=== PATIENT | male | born 1965 | race Caucasian/White ===

== ENCOUNTER 2017-02-11 19:21 | Emergency (ER) | payer OTHER ==
[~2017-02-11] VITALS: Ht 188 cm; Wt 136.1 kg
[~2017-02-11 19:21] MED LIST: ARIP2TAB9 PO; DULO20CA PO; Fluocinonide TP; TOPI25TA8 PO; WARF3TAB29 PO
[2017-02-11 20:26] LABS: BASOPHILS # (AUTO) 0.5 /CMM (0.0-0.2); BASOPHILS % (AUTO) 4.6 % (0.0-2.0); DIFF TOTAL % 100 %; EOSINOPHILS # (AUTO) 0.4 /CMM (0.0-0.7); EOSINOPHILS % (AUTO) 3.7 % (0.0-6.0); HEMATOCRIT 49 % (39-51); HEMOGLOBIN 16.2 g/dL (13.5-17.5); LYMPHOCYTES % (AUTO) 19.9 % (20.0-44.0); MEAN CORPUSCULAR HEMOGLOBIN 30 PG (26.0-33.0); MEAN CORPUSCULAR HGB CONC 33 g/dl (31.0-36.0); MEAN CORPUSCULAR VOLUME 90 fL (80-96); MONOCYTES # (AUTO) 0.6 /CMM (0.1-1.30); MONOCYTES % (AUTO) 5.8 % (2.0-12.0); NEUTROPHILS # (AUTO) 6.5 /CMM (1.8-8.9); PLATELET COUNT (AUTO) 209 /CMM (150-450); RED BLOOD CELL COUNT(AUTO) 5.44 MIL/uL (4.5-6.0)
[2017-02-11 20:28] LABS: CREATININE 0.9 mg/dL (0.6-1.3)
[2017-02-11 20:33] LABS: INR 1.04 (0.87-1.13); PROTHROMBIN TIME 10.9 SECS (9.5-12.7)
[2017-02-11 20:37] LABS: CALCIUM, SERUM 8.9 mg/dL (8.5-10.1)
[2017-02-11 21:23] VITALS: BP 126/61
== END 2017-02-11 21:24 | disposition home or self-care (01) ==
LOC: ER 19:21
DX: H61.22 Impacted cerumen, left ear (principal); L30.9 Dermatitis, unspecified; R79.1 Abnormal coagulation profile; I50.9 Heart failure, unspecified; J44.9 Chronic obstructive pulmonary disease, unspecified; F17.200 Nicotine dependence, unspecified, uncomplicated; F41.9 Anxiety disorder, unspecified; F32.9 Major depressive disorder, single episode, unspecified; Z86.718 Personal history of other venous thrombosis and embolism; Z86.711 Personal history of pulmonary embolism; Z79.01 Long term (current) use of anticoagulants
CPT/HCPCS: 36415; 69209; 80048; 85025; 85730; 99284; A4606; A6402; Z7610

== ENCOUNTER 2019-06-05 17:23 | Emergency (ER) | payer OTHER ==
[~2019-06-05] VITALS: Ht 188 cm; Wt 99.8 kg
[~2019-06-05 17:23] MED LIST changes: +ARIP2TAB3 PO; -ARIP2TAB9 PO; +TOPI25TA PO; -TOPI25TA8 PO
[2019-06-05 17:51] VITALS: BP 118/76
--- NOTE | 2019-06-05 18:02 | NUR ---
pt rec;d to er c/o rt knee pain hx dvt not taking eliquis for [address] pain8/10 given po s tiolerating well oriented x3 . AWAITING EVALUATION BY ER PROVIDER.
[2019-06-05 18:11] LABS: BASOPHILS # (AUTO) 0.1 /CMM (0.0-0.2); BASOPHILS % (AUTO) 0.9 % (0.0-2.0); EOSINOPHILS % (AUTO) 4.7 % (0.0-6.0); HEMATOCRIT 45 % (39-51); HEMOGLOBIN 14.9 g/dL (13.5-17.5); LYMPHOCYTES # (AUTO) 1.5 /CMM (0.8-4.8); LYMPHOCYTES % (AUTO) 20.6 % (20.0-44.0); MEAN CORPUSCULAR HGB CONC 33 g/dl (31.0-36.0); MEAN CORPUSCULAR VOLUME 94 fL (80-96); MONOCYTES # (AUTO) 0.7 /CMM (0.1-1.30); MONOCYTES % (AUTO) 9.7 % (2.0-12.0); NEUTROPHILS # (AUTO) 4.8 /CMM (1.8-8.9); NEUTROPHILS % (AUTO) 64.1 % (43.0-81.0); PLATELET COUNT (AUTO) 216 /CMM (150-450); RED BLOOD CELL COUNT(AUTO) 4.74 MIL/uL (4.5-6.0); WHITE BLOOD COUNT (AUTO) 7.4 K/uL (4.3-11.0)
[2019-06-05 18:20] LABS: CREATININE 0.8 mg/dL (0.6-1.3); POTASSIUM 3.7 mmol/L (3.5-5.1)
--- NOTE | 2019-06-05 18:20 | NUR ---
iv started left ac 20g labs drawn sent to lab
--- NOTE | 2019-06-05 18:21 | NUR ---
called for duplex lower legs
[2019-06-05 18:26] LABS: ALBUMIN 3.4 g/dL (3.4-5.0); BILIRUBIN,DIRECT 0.3 mg/dL (0.0-0.2); BILIRUBIN,TOTAL 1.3 mg/dL (0.2-1.0); TOTAL PROTEIN, SERUM 6.7 g/dL (6.4-8.2)
--- NOTE | 2019-06-05 19:02 | NUR ---
keith was neg notified
== END 2019-06-05 20:48 | disposition home or self-care (01) ==
LOC: ER 17:28
DX: M79.661 Pain in right lower leg (principal); J44.9 Chronic obstructive pulmonary disease, unspecified; F32.9 Major depressive disorder, single episode, unspecified; F41.9 Anxiety disorder, unspecified; I50.9 Heart failure, unspecified; F17.200 Nicotine dependence, unspecified, uncomplicated; Z98.890 Other specified postprocedural states; Z59.0 Homelessness; Z79.01 Long term (current) use of anticoagulants; Z79.899 Other long term (current) drug therapy
CPT/HCPCS: 36415; 80048-TC; 80076-TC; 85025-TC; 85730-TC; 93970-TC

== ENCOUNTER 2019-06-12 13:56 | Emergency (ER) | payer OTHER ==
[~2019-06-12] VITALS: Ht 190.5 cm; Wt 97.5 kg
--- NOTE | 2019-06-12 14:10 | NUR ---
[facility], CHEST PAIN X 2 HOURS, NON RADIATING. PATIENT A/OX4, ATTACHED TO THE MONITOR, CHANGED IN TO GOWN, NO RESP DISTRESS NOTED.
[2019-06-12 14:28] LABS: BASOPHILS # (AUTO) 0.1 /CMM (0.0-0.2); BASOPHILS % (AUTO) 1.1 % (0.0-2.0); EOSINOPHILS % (AUTO) 6.7 % (0.0-6.0); HEMATOCRIT 47 % (39-51); HEMOGLOBIN 15.6 g/dL (13.5-17.5); LYMPHOCYTES # (AUTO) 1.1 /CMM (0.8-4.8); LYMPHOCYTES % (AUTO) 17.3 % (20.0-44.0); MEAN CORPUSCULAR HGB CONC 33 g/dl (31.0-36.0); MEAN CORPUSCULAR VOLUME 95 fL (80-96); MONOCYTES # (AUTO) 0.7 /CMM (0.1-1.30); MONOCYTES % (AUTO) 10.7 % (2.0-12.0); NEUTROPHILS # (AUTO) 3.9 /CMM (1.8-8.9); NEUTROPHILS % (AUTO) 64.2 % (43.0-81.0); PLATELET COUNT (AUTO) 208 /CMM (150-450); RED BLOOD CELL COUNT(AUTO) 4.95 MIL/uL (4.5-6.0); WHITE BLOOD COUNT (AUTO) 6.1 K/uL (4.3-11.0)
[2019-06-12] MEDS ORDERED: ALBUTEROL FS 2.5 MG/3 ML VIAL.NEB CONTNEB ONE (14:30)
[2019-06-12] MEDS ORDERED: IV NS 0.9% 1,000 ML BAG IV ONE (14:30)
[2019-06-12] MEDS ORDERED: APIXABAN 5 MG TABLET PO SCH (14:30)
[2019-06-12] MEDS ORDERED: IPRATROPIUM NEB FS 0.5 MG/2.5 ML AMPUL.NEB NEB ONE (14:30)
[2019-06-12 14:35] LABS: CARBON DIOXIDE 34 mmol/L (21-32); CHLORIDE 108 mmol/L (98-107); CREATININE 0.9 mg/dL (0.6-1.3); GLUCOSE 99 mg/dL (74-106); POTASSIUM 3.5 mmol/L (3.5-5.1); SODIUM SERUM 145 mmol/L (136-145); UREA NITROGEN, BLOOD 13 mg/dL (7-18)
[2019-06-12] MEDS ORDERED: ALBUTEROL FS 2.5 MG/3 ML VIAL.NEB ONE (14:35)
[2019-06-12] MEDS ORDERED: IPRATROPIUM NEB FS 0.5 MG/2.5 ML AMPUL.NEB ONE (14:36)
[2019-06-12] MEDS ORDERED: IV NS 0.9% 250 ML IV ONE (15:04)
[2019-06-12] MEDS ORDERED: IOHEXOL-300 100 ML VIAL IV ONE (15:04)
[2019-06-12] MEDS ORDERED: CT SWABBABLE VALVE TRANS SET 1 EA INFUS.SET MC ONE (15:04)
--- NOTE | 2019-06-12 15:08 | NUR ---
PATIENT TAKEN TO CT.
--- NOTE | 2019-06-12 15:54 | NUR ---
PATIENT DENIES PAIN/DISCOMFORT AT THIS TIME
--- NOTE | 2019-06-12 17:00 | NUR ---
PATIENT A/OX3, DENIES CHEST PAIN, NO SOB NOTED. HOMELESS WAIVER FORM SIGNED, PATIENT GIVEN FOOD, AND SKILLED NURSING RESOURCES. REFUSED TAP CARD. PATIENT IN NO DISTRESS.
--- NOTE | 2019-06-12 17:05 | NUR ---
Patient discharged in stable condition. Written and verbal after care instructions given. Patient verbalizes understanding of instruction.
[2019-06-12 17:50] VITALS: BP 118/66
== END 2019-06-12 17:51 | disposition home or self-care (01) ==
LOC: ER 13:58
DX: R07.89 Other chest pain (principal); I50.9 Heart failure, unspecified; J44.9 Chronic obstructive pulmonary disease, unspecified; F32.9 Major depressive disorder, single episode, unspecified; F41.9 Anxiety disorder, unspecified; F17.200 Nicotine dependence, unspecified, uncomplicated; Z98.890 Other specified postprocedural states; Z86.711 Personal history of pulmonary embolism; Z59.0 Homelessness; Z79.899 Other long term (current) drug therapy; Z79.01 Long term (current) use of anticoagulants
CPT/HCPCS: 36415; 71045; 71260; 80048; 84484; 85025; 93005; 94640 ×2; 99284; J7030; J7050; Q9967

== ENCOUNTER 2019-06-29 19:38 | Emergency (ER) | payer OTHER ==
[~2019-06-29] VITALS: Ht 188 cm; Wt 99.8 kg
[2019-06-29 20:42] VITALS: BP 138/69
--- NOTE | 2019-06-29 21:39 | NUR ---
PT REFUSING TO SIGN HOMELESS DISCHARGE PAPERWORK. PACKET OF AVAILABLE RESOURCES GIVEN TO PATIENT BEFORE DISCHARGE. PACKET WAS THROWN AWAY IN THE TRASHCAN BY PATIENT BEFORE LEAVING. PT AMBULATORY. VSS. -SOB NOTED.
== END 2019-06-29 21:41 | disposition home or self-care (01) ==
LOC: ER 19:42
DX: R05 Cough (principal); I50.9 Heart failure, unspecified; J44.9 Chronic obstructive pulmonary disease, unspecified; F32.9 Major depressive disorder, single episode, unspecified; F41.9 Anxiety disorder, unspecified; F17.200 Nicotine dependence, unspecified, uncomplicated; Z98.890 Other specified postprocedural states; Z76.0 Encounter for issue of repeat prescription; Z59.0 Homelessness; Z79.01 Long term (current) use of anticoagulants; Z86.711 Personal history of pulmonary embolism
CPT/HCPCS: 71045-TC

== ENCOUNTER 2019-07-09 06:25 | Emergency (ER) | payer OTHER ==
[~2019-07-09] VITALS: Ht 188 cm; Wt 100.2 kg
[2019-07-09 06:31] VITALS: BP 124/74
== END 2019-07-09 06:59 | disposition home or self-care (01) ==
LOC: ER 06:30
DX: L03.116 Cellulitis of left lower limb (principal); I50.9 Heart failure, unspecified; J44.9 Chronic obstructive pulmonary disease, unspecified; F32.9 Major depressive disorder, single episode, unspecified; F41.9 Anxiety disorder, unspecified; F17.200 Nicotine dependence, unspecified, uncomplicated; Z86.711 Personal history of pulmonary embolism; Z87.01 Personal history of pneumonia (recurrent); Z98.890 Other specified postprocedural states; Z59.0 Homelessness; Z79.899 Other long term (current) drug therapy; Z79.01 Long term (current) use of anticoagulants

== ENCOUNTER 2019-07-12 10:13 | Emergency (ER) | payer OTHER ==
[~2019-07-12] VITALS: Ht 188 cm; Wt 99.8 kg
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
--- NOTE | 2019-07-12 10:29 | NUR ---
DR VALERA AT BEDSIDE
--- NOTE | 2019-07-12 11:38 | NUR ---
Patient signed homeless waiver discharge. Patient given written and verbal discharge instructions. Patient verbalizes understanding of instructions. Patient is ambulatory with steady gait. Refuses offer of [facility] placement. Patient given list of available shelters in surrounding area. Nameband removed. Discharged in proper clothing.
[2019-07-12 11:40] VITALS: BP 124/76
== END 2019-07-12 11:42 | disposition home or self-care (01) ==
LOC: ER 10:15
DX: S60.222A Contusion of left hand, initial encounter (principal); S90.32XA Contusion of left foot, initial encounter; I50.9 Heart failure, unspecified; J44.9 Chronic obstructive pulmonary disease, unspecified; F32.9 Major depressive disorder, single episode, unspecified; F17.200 Nicotine dependence, unspecified, uncomplicated; F41.9 Anxiety disorder, unspecified; Z86.711 Personal history of pulmonary embolism; Z98.890 Other specified postprocedural states; Z59.0 Homelessness; V09.9XXA Pedestrian injured in unspecified transport accident, initial encounter; Y93.89 Activity, other specified; Y92.89 Other specified places as the place of occurrence of the external cause; Y99.8 Other external cause status
CPT/HCPCS: 73130-TC; 73630-TC

== ENCOUNTER 2020-08-09 23:19 | Emergency (ER) | payer OTHER ==
[~2020-08-09] VITALS: Ht 190.5 cm; Wt 95.3 kg
--- NOTE | 2020-08-09 23:54 | NUR ---
DR PERALTA AT BED SIDE
--- NOTE | 2020-08-10 | NUR ---
PT CAME TO THE ER C/O GENERALIZED ABD PAIN +N/V/D X 2 DAYS. PT ALSO ENDORSES BEING DEPRESSED. +SI -HI. PT AAOX4, VSS, RESPIRATIONS EVEN AND UNLABORED ON RA W / NAD NOTED. PT CONNECTED TO THE MONITOR AND POX
[2020-08-10] MEDS ORDERED: ONDANSETRON HCL/PF 4 MG/2 ML VIAL ONE (00:10)
--- NOTE | 2020-08-10 00:15 | NUR ---
BLOOD COLLECTED AND SENT TO LAB
[2020-08-10] MEDS: ONDANSETRON HCL/PF - ER 4 MG/2 ML VIAL IV ONE (00:18)
[2020-08-10] MEDS: IV NS 0.9% 1,000 ML BAG IV ONE (00:18)
--- NOTE | 2020-08-10 00:20 | NUR ---
PT MEDICATED ORDERED
[2020-08-10 00:31] LABS: BASOPHILS # (AUTO) 0.1 /CMM (0.0-0.2); BASOPHILS % (AUTO) 1.2 % (0.0-2.0); EOSINOPHILS % (AUTO) 6.1 % (0.0-6.0); HEMATOCRIT 46 % (39-51); HEMOGLOBIN 15.1 g/dL (13.5-17.5); LYMPHOCYTES # (AUTO) 1.9 /CMM (0.8-4.8); LYMPHOCYTES % (AUTO) 28.6 % (20.0-44.0); MEAN CORPUSCULAR HGB CONC 33 g/dl (31.0-36.0); MEAN CORPUSCULAR VOLUME 95 fL (80-96); MONOCYTES # (AUTO) 0.7 /CMM (0.1-1.30); MONOCYTES % (AUTO) 10.9 % (2.0-12.0); NEUTROPHILS # (AUTO) 3.6 /CMM (1.8-8.9); NEUTROPHILS % (AUTO) 53.2 % (43.0-81.0); PLATELET COUNT (AUTO) 184 /CMM (150-450); RED BLOOD CELL COUNT(AUTO) 4.84 MIL/uL (4.5-6.0); WHITE BLOOD COUNT (AUTO) 6.8 K/uL (4.3-11.0)
[2020-08-10 00:49] LABS: ALANINE AMINOTRANSFERASE 17 U/L (12-78); ALBUMIN 3.5 g/dL (3.4-5.0); ALCOHOL, BLOOD < 3 mg/dL (0-0); ALKALINE PHOSPHATASE 91 U/L (46-116); ASPARTATE AMINOTRANSFERASE 19 U/L (15-37); BILIRUBIN,DIRECT 0.2 mg/dL (0.0-0.2); BILIRUBIN,TOTAL 0.7 mg/dL (0.2-1.0); CALCIUM, SERUM 8.9 mg/dL (8.5-10.1); CARBON DIOXIDE 30 mmol/L (21-32); CHLORIDE 103 mmol/L (98-107); CREATININE 0.9 mg/dL (0.6-1.3); GLUCOSE 106 mg/dL (74-106); LIPASE 130 U/L (73-393); POTASSIUM 3.8 mmol/L (3.5-5.1); SODIUM SERUM 140 mmol/L (136-145); TOTAL PROTEIN, SERUM 6.8 g/dL (6.4-8.2); UREA NITROGEN, BLOOD 16 mg/dL (7-18)
[2020-08-10 01:12] LABS: ACETAMINOPHEN < 2 ug/ml (10-30)
[2020-08-10] MEDS ORDERED: IOHEXOL-300 100 ML VIAL IV ONE (01:18)
[2020-08-10] MEDS ORDERED: IV NS 0.9% 250 ML IV ONE (01:18)
[2020-08-10] MEDS ORDERED: CT SWABBABLE VALVE TRANS SET 1 EA INFUS.SET MC ONE (01:18)
--- NOTE | 2020-08-10 01:19 | NUR ---
PT TAKEN TO RADIOLOGY FOR CT
--- NOTE | 2020-08-10 01:37 | NUR ---
PT BACK FROM RADIOLOGY
--- NOTE | 2020-08-10 01:59 | NUR ---
URINE COLLECTED AND SENT TO LAB
[2020-08-10 02:14] LABS: APPEARANCE,URINE CLEAR (CLEAR); BILIRUBIN,URINE NEGATIVE (NEGATIVE); BLOOD, URINE NEGATIVE Ery/uL (NEGATIVE); COLOR,URINE YELLOW (YELLOW); KETONES,URINE NEGATIVE (NEGATIVE); LEUKOCYTE ESTERASE ,URINE NEGATIVE (NEGATIVE); NITRITE, URINE NEGATIVE (NEGATIVE); PROTEIN,URINE NEGATIVE (NEGATIVE); UGLUCOSE NEGATIVE (NEGATIVE)
[2020-08-10 02:33] LABS: RBC,URINE 0-2 /HPF (0-2); WBC,URINE 0-2 /HPF (0-3)
[2020-08-10 02:34] LABS: BACTERIA,URINE None seen /HPF (None Seen); SQUAMOUS EPITHELIAL CELL,UR Few /HPF (None Seen)
--- NOTE | 2020-08-10 03:28 | NUR ---
CLINICAL FAXED TO [facility] FOR VOLUNTARY ADMISSION.
--- NOTE | 2020-08-10 04:31 | NUR ---
PT RESTING COMFORTABLY IN BED. VSS. NO ACUTE DISTRESS NOTED. PT CONNECTED TO THE MONITOR AND POX. CALL LIGHT WITHIN REACH. SITTER AT BEDSIDE FOR SAFETY.
--- NOTE | 2020-08-10 05:26 | NUR ---
NO BEDS AT [facility] PER INTAKE.
--- NOTE | 2020-08-10 07:30 | NUR ---
REPORT GIVEN TO ARTIS TYLER FOR [facility]
--- NOTE | 2020-08-10 08:20 | NUR ---
madina carrollw called for eval/placement
--- NOTE | 2020-08-10 08:58 | NUR ---
PER MIGUELANGEL COKER, PATIENT WILL BE GOING TO [facility]. AWAITING TRANSFER INFO FROM [facility].
--- NOTE | 2020-08-10 09:52 | NUR ---
Mineral Industry Teacher Consult requested by ARTIS Bhatti. Patient is a 55 year-old male. Per MD note . Presenting initially with complaints of nausea, vomiting and diarrhea. Patient was alert and oriented x4. Patient confirmed demographics on face sheet including date of . Patient currently reports to be homeless for approximately 2 years now. Patient reports a total income of $1600 as he receives from his mothers antony. Patient reports drinking alcohol every now and then reports beer approximately 2-3 beers a week when he does drink. Patient reports smoking marijuana to ease anxiety. Patient reports the use of Meth started one month ago and the last time used was 4-5 days ago. Patient reports smoking cigarettes, reports trying to quit, currently smoking half a pack a day. This SW affirmed the patients want to stop smoking. Patient reports burn out. Reports a mental health diagnosis of depression and anxiety. Reports using marijuana to help with the anxiety but according to the patient does not work anymore. Patient stopped medications 6-7 months ago. Patient reports going to [facility] and most recent [facility] but stopped 3 months ago. Patient denies auditory and visual hallucinations. Patient reports no current suicidal ideation but has thought about it in the past. Per patient Im too chicken, I care about myself too much. Patient denies homicidal ideation. Patient would like voluntary treatment at a psychiatric facility. This SW to contact [facility] for intake. Patient requested this SW contact his daughter France to inform patients daughter about current situation. This SW to follow-up with daughter France per patients request.
--- NOTE | 2020-08-10 09:53 | NUR ---
This SW attempted to contact patient's daughter France . This SW could not leave a voicemail at this time. SW to follow up at a later time.
--- NOTE | 2020-08-10 10:47 | NUR ---
ACCEPTED AT [facility] UNDER DR. OGLESBY. ROOM NO. 604-A NUMBER TO GIVE REPORT: [phone] SPOKE TO CJ AT [facility] INTAKE.
--- NOTE | 2020-08-10 10:54 | NUR ---
CALLED [facility] [phone] OPTION 2 WILL CALL US BACK
--- NOTE | 2020-08-10 11:02 | NUR ---
AL FROM [facility] CALLED, [facility] WILL BE HERE FOR TRANSPORT 60MINS.
--- NOTE | 2020-08-10 11:45 | NUR ---
IV removed. Catheter intact and site benign. Pressure and 4x4 applied to site. No bleeding noted.
--- NOTE | 2020-08-10 11:50 | NUR ---
REPORT GIVEN TO DAVID WISDOM. PATIENT PICKED UP BY [facility] UNIT 720 IN STABLE CONDITION. INSTRUCTED PA [facility] TO BRING PATIENT TO P4 FOR COVID CLEARANCE. CLINICALS PROVIDED TO EMS TO BE GIVEN TO [facility].
[2020-08-10 12:00] VITALS: BP 118/67
== END 2020-08-10 12:04 ==
LOC: ER 23:19
DX: R45.851 Suicidal ideations (principal); K52.9 Noninfective gastroenteritis and colitis, unspecified; F17.210 Nicotine dependence, cigarettes, uncomplicated; I50.9 Heart failure, unspecified; J44.9 Chronic obstructive pulmonary disease, unspecified; Z59.0 Homelessness; Z98.890 Other specified postprocedural states; Z79.84 Long term (current) use of oral hypoglycemic drugs; Z79.899 Other long term (current) drug therapy
CPT/HCPCS: 36415; 74177; 80048; 80076; 80305; 80307; 80329; 81001; 83690; 85025; 96361; 96374; 99285; 99406; G0480; J2405 ×2; J7030; J7050; Q9967; 81000-TC

== ENCOUNTER 2021-01-17 10:40 | Emergency (ER) | payer OTHER ==
[~2021-01-17] VITALS: Ht 190.5 cm; Wt 106.1 kg
--- NOTE | 2021-01-17 10:55 | NUR ---
C/O WEAKNESS AND COUGH X 1 WEEK. PATIENT A/OX4, AMBULATORY WITH STEADY GAIT. NO DISTRESS NOTED. DENIES SOB AT THIS TIME.
[2021-01-17] MEDS ORDERED: ACETAMINOPHEN ES 500 MG TABLET ONE (11:05)
[2021-01-17] MEDS: ACETAMINOPHEN ES 500 MG TABLET PO ONE (11:13)
[2021-01-17 11:45] LABS: BASOPHILS # (AUTO) 0.1 /CMM (0.0-0.2); BASOPHILS % (AUTO) 0.7 % (0.0-2.0); EOSINOPHILS % (AUTO) 6.8 % (0.0-6.0); HEMATOCRIT 48 % (39-51); HEMOGLOBIN 15.7 g/dL (13.5-17.5); LYMPHOCYTES # (AUTO) 1.5 /CMM (0.8-4.8); LYMPHOCYTES % (AUTO) 21.6 % (20.0-44.0); MEAN CORPUSCULAR HGB CONC 33 g/dl (31.0-36.0); MEAN CORPUSCULAR VOLUME 95 fL (80-96); MONOCYTES # (AUTO) 0.6 /CMM (0.1-1.30); MONOCYTES % (AUTO) 8.5 % (2.0-12.0); NEUTROPHILS # (AUTO) 4.4 /CMM (1.8-8.9); NEUTROPHILS % (AUTO) 62.4 % (43.0-81.0); PLATELET COUNT (AUTO) 205 /CMM (150-450); RED BLOOD CELL COUNT(AUTO) 5.02 MIL/uL (4.5-6.0)
[2021-01-17 11:47] LABS: CALCIUM, SERUM 9.4 mg/dL (8.5-10.1); CARBON DIOXIDE 32 mmol/L (21-32); CHLORIDE 105 mmol/L (98-107); CREATININE 0.8 mg/dL (0.6-1.3); GLUCOSE 81 mg/dL (74-106); POTASSIUM 3.4 mmol/L (3.5-5.1); SODIUM SERUM 143 mmol/L (136-145); UREA NITROGEN, BLOOD 11 mg/dL (7-18)
[2021-01-17 12:02] LABS: B-TYPE NATRIURETIC PEPTIDE 313 PG/ML (0-125)
--- NOTE | 2021-01-17 13:02 | NUR ---
COMPUTER AIDED DRAFTER AT BEDSIDE. PT VERBALIZED SUICIDAL IDEARTION W/ PLAN TO OVERDOSE ON DRUGS. PT IS SEEKING VOLUNTARY INPATIENT AND WILL BE REFFERED BY THE COMPUTER AIDED DRAFTER TO [facility]
--- NOTE | 2021-01-17 13:27 | NUR ---
"SS Consult: SS Consult requested for homelessness. The pt. is a 55-year old male in ED seeking Tx. for shortness of breath, generalized weakness, cough x1 week per MD note. The pt. is alert & oriented x 2 and makes appropriate eye contact. The pt. appears disheveled & is malodorous. The pt. s speech is WNL. The pt. stated that they have been experiencing homelessness for the last 2.5 years. Per pt. he [place] [address] [facility]. Patient is able to care for self. Per pt. he receives food stamps & no other financial assistance. MIGUELANGEL explored pt.s mental Health Hx. Per pt. he has been diagnosed with Depression & anxiety and could not specify what medications he is prescribed. Pt. stated he has been having thoughts of SI w/ plan to OD on drugs. Per pt. he knows drug vendors & can buy from them. Pt. stated, I am tired of being homeless, I cant do this anymore. Pt. stated that he doesnt feel safe. MIGUELANGEL offered pt. to go voluntary to a psychiatric facility for treatment for his mental health. Pt. is agreeable. Pt. denies HI & denies hallucinations. Plan: MIGUELANGEL referred pt. to [facility] [[address] [place] [address] ] for inpatient psychiatric treatment. Pt. signed homeless waiver & it was filed in pt.s chart. MIGUELANGEL provided pt. with the following resources: Substance Abuse resources provided included: [facility] Substance Abuse Self-Helpline ([facility]) ; CRI -HELP [address] [facility]. [place] [address] ; [facility] [address] [facility] [address] ; [facility] Rehabilitation Program [address] [facility] [address] ; [facility] [address] [facility] [address] ; [facility] 4989 [facility] [address] ; [facility] [address] [facility] [id number] ; [facility] Substance Abuse Helpline([facility] ; [facility] ; [facility] [place]; [facility] [place]; [facility] [place]; [facility] [place]; [facility]; [facility]; [facility] Tarza; [facility]. [facility]; Alcoholics Anonymous -SFV; Fm-Hbqu-Wasjrgs ; Marijuana Anonymous -SFV; Narcotics Anonymous www.na.org; Year-round shelters: [facility] [address] [place], [place] [id number] ; [facility] [place] [address] [place] [address]; [facility] [id number] [facility] [address] Winter Shelters: [place] Sujatha Mcgregor Provider: [facility] [place] Address: [address] [place], [address] # of Beds: 47 Population Served: [facility] 6 | [facility] Jojo Cruz Mcgregor Provider: [facility] Last Address: [address] [facility], [address] # of Beds: 66 Population Served: [facility] Mcgreg[place] Provider: First to Serve Address: [address] [facility], [address] # of Beds: 56 Population Served: [place] Provider: / [facility] Address: [address] [facility], [address] # of Beds: 49 Population Served: [facility] 8 | [facility] Provider: First to Serve Address: [address] [place], [place] [address]Courtney Christopher [address] # of Beds: 37 Population Served: [facility] Hygiene: [facility]: [address] [place] ; [facility] [address] [facility] ; [facility] [address], [place] . Food Resources: [place] [facility] at [facility]- [address] [facility]; Meet Each Need with Dignity ([facility]) [address] [facility]; [facility] Food Pantry 43 [facility]; [facility] 6051 [facility]. Mental Health resources provided: [facility] [address] [place], [place] [id number] ; [facility] [address] [facility] [address], [place], [place] [id number] ; [facility] [address] [place], [place] [phone] ; [facility] [address] [place], [place] [id number] Healthcare Clinics: [facility] [address] [facility], [address] [place]. [place] ; [facility] [address] [facility] [address] [place] [address]; [place] [address] [facility]. [place] [phone]"
--- NOTE | 2021-01-17 13:44 | NUR ---
CALLED DANIELLE FAXED CLINICALS
[2021-01-17 14:02] VITALS: BP 143/73
[2021-01-17 14:54] LABS: BILIRUBIN,URINE SMALL (NEGATIVE); COLOR,URINE YELLOW (YELLOW); LEUKOCYTE ESTERASE ,URINE NEGATIVE (NEGATIVE); NITRITE, URINE NEGATIVE (NEGATIVE); PROTEIN,URINE NEGATIVE (NEGATIVE); UGLUCOSE NEGATIVE (NEGATIVE)
--- NOTE | 2021-01-17 15:47 | NUR ---
FAXED TOXICOLOGY TO [facility] [phone]
--- NOTE | 2021-01-17 16:32 | NUR ---
PT ACCEPTED TO [facility] UNDER DR. RENEE CALL FOR REPORT TO [phone] UNIT 1
--- NOTE | 2021-01-17 16:33 | NUR ---
CALLED [facility] WILL CALL US WITH TRANSPORT AND ETA.
--- NOTE | 2021-01-17 16:40 | NUR ---
REF NUMBER [id number]
--- NOTE | 2021-01-17 16:41 | NUR ---
REPORT GIVEN TO DELBERT WISDOM.
--- NOTE | 2021-01-17 19:30 | NUR ---
PT TRANSPORTED TO [facility] VIA NON MEDICAL TRANSPORT. PT IS IN STABLE CONDITION FOR TRANSPORT. REPORT GIVEN
== END 2021-01-17 20:02 ==
LOC: ER 10:43
DX: R06.02 Shortness of breath (principal); Z86.711 Personal history of pulmonary embolism; R05 Cough; Z20.822 Contact with and (suspected) exposure to COVID-19; R45.851 Suicidal ideations; J44.9 Chronic obstructive pulmonary disease, unspecified; Z87.01 Personal history of pneumonia (recurrent); Z59.0 Homelessness; F17.200 Nicotine dependence, unspecified, uncomplicated; Z79.01 Long term (current) use of anticoagulants; Z79.899 Other long term (current) drug therapy
CPT/HCPCS: 36415; 71045; 80048; 80307; 81003; 83880; 84484; 85025; 85378; 87426; 93005; 99285; C9803

== ENCOUNTER 2021-01-27 09:27 | Emergency (ER) | payer OTHER ==
[~2021-01-27] VITALS: Ht 190.5 cm; Wt 115.2 kg
--- NOTE | 2021-01-27 09:27 | NUR ---
PT BIB SELF C/O DEPRESSION DENIES SI/HI. PT WANTS TO BE ADMITTED IN [facility] FOR PSYCH. PT IS AAOX4, NOT IN RESPIRATORY DISTRESS, V/S STABLE, KEPT RESTED AND COMFORTABLE. WILL CONTINUE TO MONITOR.
--- NOTE | 2021-01-27 09:45 | NUR ---
SEEN AND EXAMINED BY .
--- NOTE | 2021-01-27 09:48 | NUR ---
ER PHLEB AT BEDSIDE FOR BLOOD DRAW.
--- NOTE | 2021-01-27 09:48 | NUR ---
SECURITY AT BEDSIDE FOR WANDING
[2021-01-27 10:01] LABS: BASOPHILS # (AUTO) 0.1 /CMM (0.0-0.2); BASOPHILS % (AUTO) 0.7 % (0.0-2.0); HEMATOCRIT 48 % (39-51); LYMPHOCYTES # (AUTO) 1.4 /CMM (0.8-4.8); LYMPHOCYTES % (AUTO) 18.2 % (20.0-44.0); MEAN CORPUSCULAR HGB CONC 33 g/dl (31.0-36.0); MEAN CORPUSCULAR VOLUME 95 fL (80-96); MONOCYTES # (AUTO) 0.6 /CMM (0.1-1.30); MONOCYTES % (AUTO) 7.8 % (2.0-12.0); NEUTROPHILS # (AUTO) 5.3 /CMM (1.8-8.9); NEUTROPHILS % (AUTO) 67.3 % (43.0-81.0); PLATELET COUNT (AUTO) 213 /CMM (150-450); RED BLOOD CELL COUNT(AUTO) 5.06 MIL/uL (4.5-6.0); WHITE BLOOD COUNT (AUTO) 7.8 K/uL (4.3-11.0)
[2021-01-27 10:17] LABS: CALCIUM, SERUM 9.3 mg/dL (8.5-10.1); CARBON DIOXIDE 29 mmol/L (21-32); CHLORIDE 102 mmol/L (98-107); CREATININE 0.7 mg/dL (0.6-1.3); GLUCOSE 99 mg/dL (74-106); POTASSIUM 3.8 mmol/L (3.5-5.1); SODIUM SERUM 141 mmol/L (136-145); UREA NITROGEN, BLOOD 12 mg/dL (7-18)
[2021-01-27 10:24] LABS: ALANINE AMINOTRANSFERASE 20 U/L (12-78); ALBUMIN 3.7 g/dL (3.4-5.0); ALCOHOL, BLOOD < 3 mg/dL (0-0); ALKALINE PHOSPHATASE 96 U/L (46-116); ASPARTATE AMINOTRANSFERASE 20 U/L (15-37); BILIRUBIN,DIRECT 0.4 mg/dL (0.0-0.2); BILIRUBIN,TOTAL 2.1 mg/dL (0.2-1.0); TOTAL PROTEIN, SERUM 7.4 g/dL (6.4-8.2)
[2021-01-27 10:26] LABS: ACETAMINOPHEN < 10 ug/ml (10-30)
--- NOTE | 2021-01-27 10:34 | NUR ---
LAB CALLED PT COVID RESULT NEGATIVE (-)
--- NOTE | 2021-01-27 11:43 | NUR ---
KRISTEN MOSQUERA ACCEPTED BY DR. OGLESBY [phone]
[2021-01-27 13:00] LABS: BILIRUBIN,URINE Negative (NEGATIVE); COLOR,URINE YELLOW (YELLOW); LEUKOCYTE ESTERASE ,URINE Negative (NEGATIVE); NITRITE, URINE Negative (NEGATIVE); PH,URINE 5.5 (5.0-8.0); PROTEIN,URINE Negative (NEGATIVE); UGLUCOSE Negative (NEGATIVE)
[2021-01-27 13:16] LABS: BACTERIA,URINE Rare /HPF (None Seen); SQUAMOUS EPITHELIAL CELL,UR Few /HPF (None Seen); WBC,URINE NONE SEEN /HPF (0-3)
--- NOTE | 2021-01-27 13:24 | NUR ---
CALL THE CAR RES #[id number]
[2021-01-27 14:05] VITALS: BP 107/59
--- NOTE | 2021-01-27 14:16 | NUR ---
JOELLE #26 AT BEDSIDE FOR PT TRANSPORT TO [facility]. REPORT GIVEN
== END 2021-01-27 14:33 ==
LOC: ER 09:29
DX: F32.9 Major depressive disorder, single episode, unspecified (principal); J44.9 Chronic obstructive pulmonary disease, unspecified; Z86.711 Personal history of pulmonary embolism; Z79.01 Long term (current) use of anticoagulants; Z59.0 Homelessness; Z87.01 Personal history of pneumonia (recurrent); Z79.899 Other long term (current) drug therapy; Z20.822 Contact with and (suspected) exposure to COVID-19
CPT/HCPCS: 36415; 80048; 80076; 80299; 80307; 80320; 81001; 85025; 87426; 99285; C9803; G0480

== ENCOUNTER 2021-02-06 23:26 | Emergency (ER) | payer OTHER ==
[~2021-02-06] VITALS: Ht 190.5 cm; Wt 104.3 kg
--- NOTE | 2021-02-06 23:44 | NUR ---
COVID SWABBED, SENT TO LAB
--- NOTE | 2021-02-06 23:44 | NUR ---
HADOOP ENGINEER AT BEDSIDE FOR BLOOD WORK.
[2021-02-06 23:49] LABS: BASOPHILS # (AUTO) 0.1 /CMM (0.0-0.2); BASOPHILS % (AUTO) 0.7 % (0.0-2.0); EOSINOPHILS % (AUTO) 6.2 % (0.0-6.0); HEMATOCRIT 47 % (39-51); HEMOGLOBIN 15.8 g/dL (13.5-17.5); LYMPHOCYTES # (AUTO) 1.9 /CMM (0.8-4.8); LYMPHOCYTES % (AUTO) 24.1 % (20.0-44.0); MEAN CORPUSCULAR HGB CONC 34 g/dl (31.0-36.0); MEAN CORPUSCULAR VOLUME 95 fL (80-96); MONOCYTES # (AUTO) 0.7 /CMM (0.1-1.30); MONOCYTES % (AUTO) 8.5 % (2.0-12.0); NEUTROPHILS # (AUTO) 4.7 /CMM (1.8-8.9); NEUTROPHILS % (AUTO) 60.5 % (43.0-81.0); PLATELET COUNT (AUTO) 212 /CMM (150-450); RED BLOOD CELL COUNT(AUTO) 4.95 MIL/uL (4.5-6.0); WHITE BLOOD COUNT (AUTO) 7.7 K/uL (4.3-11.0)
[2021-02-07 00:05] LABS: CALCIUM, SERUM 8.9 mg/dL (8.5-10.1); CARBON DIOXIDE 34 mmol/L (21-32); CHLORIDE 103 mmol/L (98-107); CREATININE 0.7 mg/dL (0.6-1.3); GLUCOSE 108 mg/dL (74-106); POTASSIUM 3.6 mmol/L (3.5-5.1); SODIUM SERUM 142 mmol/L (136-145); UREA NITROGEN, BLOOD 9 mg/dL (7-18)
[2021-02-07 00:09] LABS: ACETAMINOPHEN < 2 ug/ml (10-30); ALANINE AMINOTRANSFERASE 18 U/L (12-78); ALBUMIN 3.8 g/dL (3.4-5.0); ALCOHOL, BLOOD < 3 mg/dL (0-0); ALKALINE PHOSPHATASE 90 U/L (46-116); ASPARTATE AMINOTRANSFERASE 17 U/L (15-37); BILIRUBIN,DIRECT 0.2 mg/dL (0.0-0.2); BILIRUBIN,TOTAL 0.8 mg/dL (0.2-1.0)
[2021-02-07 00:13] LABS: BILIRUBIN,URINE SMALL (NEGATIVE); COLOR,URINE YELLOW (YELLOW); LEUKOCYTE ESTERASE ,URINE Negative (NEGATIVE); NITRITE, URINE Negative (NEGATIVE); PROTEIN,URINE Negative (NEGATIVE); UGLUCOSE Negative (NEGATIVE)
[2021-02-07 00:18] LABS: BACTERIA,URINE Rare /HPF (None Seen); RBC,URINE NONE SEEN /HPF (0-2); SQUAMOUS EPITHELIAL CELL,UR Few /HPF (None Seen); WBC,URINE NONE SEEN /HPF (0-3)
--- NOTE | 2021-02-07 00:46 | NUR ---
CLINICAL AND FACESHEET FAXED TO [facility] FOR VOLUNTARY ADMISSION.
--- NOTE | 2021-02-07 01:50 | NUR ---
[phone] is the res number per [facility]car
--- NOTE | 2021-02-07 03:02 | NUR ---
TRANSFER INFORMATION: PT ACCEPTED AT [facility] ACCEPTING MD OGLESBY PHONE # FOR REPORT EXT [phone]
--- NOTE | 2021-02-07 03:03 | NUR ---
[facility] ETA FOR TRANSPORT IS [phone] PER [facility].
--- NOTE | 2021-02-07 04:49 | NUR ---
REPORT GIVEN TO JEWELS WISDOM AT [place]
--- NOTE | 2021-02-07 05:35 | NUR ---
[facility] TRANSPORT AT [facility]. REPORT GIVEN TO EM TRANSPORT.
[2021-02-07 05:36] VITALS: BP 132/68
== END 2021-02-07 05:37 ==
LOC: ER 23:28
DX: R45.851 Suicidal ideations (principal); J44.9 Chronic obstructive pulmonary disease, unspecified; Z86.711 Personal history of pulmonary embolism; Z79.01 Long term (current) use of anticoagulants; Z87.01 Personal history of pneumonia (recurrent); Z59.0 Homelessness; F41.8 Other specified anxiety disorders; Z20.822 Contact with and (suspected) exposure to COVID-19
CPT/HCPCS: 36415; 80048; 80076; 80299; 80307; 80320; 81001; 85025; 87426; 99285; C9803; G0480

== ENCOUNTER 2021-07-16 03:26 | Emergency (ER) | payer OTHER ==
[~2021-07-16] VITALS: Ht 188 cm; Wt 101.6 kg
--- NOTE | 2021-07-16 03:40 | NUR ---
PATIENT BIB 839 FROM ALF WITH C/O COUGH. PATIENT REQUSTING FOR BREATHING TX. PATIENT STATED HE RAN OUT OF INHALER. REFUSED BREATHING TX BY EMS. PATIENT IS A/O X 4, RR EVEN AND UNLABORED, NO SOB NOTED. PATIENT CONNECTED TO MONITOR.
[2021-07-16] MEDS ORDERED: ALBUTEROL FS 2.5 MG/3 ML VIAL.NEB ONE (03:46)
[2021-07-16] MEDS ORDERED: IPRATROPIUM NEB FS 0.5 MG/2.5 ML AMPUL.NEB ONE (03:47)
[2021-07-16] MEDS ORDERED: predniSONE 20 MG TABLET ONE (03:48)
--- NOTE | 2021-07-16 03:51 | NUR ---
rt at bedside
--- NOTE | 2021-07-16 03:55 | NUR ---
RAD AT BEDSIDE
[2021-07-16] MEDS ORDERED: ALBUTEROL FS 2.5 MG/3 ML VIAL.NEB NEB ONE (04:00)
[2021-07-16] MEDS ORDERED: IPRATROPIUM NEB FS 0.5 MG/2.5 ML AMPUL.NEB NEB ONE (04:00)
[2021-07-16] MEDS ORDERED: predniSONE 20 MG TABLET PO ONE (04:00)
[2021-07-16] MEDS ORDERED: PRED20TA PO (04:55)
[2021-07-16] MEDS ORDERED: AZIT250T13 PO (04:55)
[2021-07-16] MEDS ORDERED: ALBU18HF2 INH (04:55)
--- NOTE | 2021-07-16 04:56 | NUR ---
PT WALKED TO THE NURSING STATION. REPORTED FEELING GOOD AND READY TO LEAVE. MD RILEY
--- NOTE | 2021-07-16 05:02 | NUR ---
Patient discharged to home in stable condition. Rx Written and verbal after care instructions given. Patient verbalizes understanding of instruction.
[2021-07-16 05:03] VITALS: BP 138/76
== END 2021-07-16 05:03 | disposition home or self-care (01) ==
LOC: ER 03:28
DX: J44.9 Chronic obstructive pulmonary disease, unspecified (principal); I50.9 Heart failure, unspecified; F32.9 Major depressive disorder, single episode, unspecified; F41.9 Anxiety disorder, unspecified; Z98.890 Other specified postprocedural states; Z79.899 Other long term (current) drug therapy
CPT/HCPCS: 71045; 94644; 99285; J7512